=== PATIENT | female | born 1990 | race African-American/Black ===

== ENCOUNTER 2017-07-25 17:34 | Emergency (ER) | payer OTHER ==
[2017-07-25] MEDS ORDERED: Acetaminophen 500 MG TAB ONE (18:22)
[2017-07-25] MEDS ORDERED: Dexamethasone 4 mg/ml Vial ONE (18:50)
[2017-07-25] MEDS ORDERED: Ketorolac Tromethamine 30 MG/ML VIAL ONE (19:03)
== END 2017-07-25 19:30 | disposition home or self-care (01) ==
LOC: ERS 17:34
DX: J02.0 Streptococcal pharyngitis (principal)
CPT/HCPCS: 87430; 96372; J1100; J1885

== ENCOUNTER 2017-11-21 12:46 | Emergency (ER) | payer OTHER | END 2017-11-21 14:09 | disposition home or self-care (01) | LOC: ERS 12:46 | DX: J02.0 Streptococcal pharyngitis (principal); J31.0 Chronic rhinitis | CPT/HCPCS: 87430; 99283 ==

== ENCOUNTER 2018-01-19 16:00 | Emergency (ER) | payer OTHER ==
[~2018-01-19 16:00] MED LIST: ISOVUE-370 76%-LOCM 1 ML ONE
[2018-01-19] MEDS ORDERED: HYDROmorphone 0.5 MG/0.5 ML SYRINGE ONE (16:42)
[2018-01-19] MEDS ORDERED: Ondansetron HCl/PF 4 MG/2 ML Vial ONE (16:42)
[2018-01-19 17:04] LABS: #Basophils 0.1 thou/uL (0.0-0.2); #Eosinphils 0.3 thou/uL (0.0-0.7); #Lymphocytes 1.4 thou/uL (1.20-3.40); #Monocytes 0.6 thou/uL (0.11-0.59); #Neutrophils 7.7 thou/uL (1.40-6.50); %Basophils 0.6 % (0.0-1.0); %Eosinophils 2.9 % (0.0-10.0); %Lymphocytes 13.6 % (21.0-51.0); %Monocytes 5.5 % (0.0-10.0); %Neutrophils 77.5 % (42.0-75.0); Hemoglobin 13.1 g/dL (12.0-16.0); Mean Corpuscular HGB CONC 34.4 g/dL (32.0-36.0); Mean Corpuscular Hemoglobin 30.8 pg (27.0-31.0); Mean Corpuscular Volume 89.7 fL (78.0-98.0); Mean Platelet Volume 6.6 fL (7.4-10.4); Platelet Count 318 thou/uL (130-400); RBC Distribution Width 13.8 % (11.5-14.5); Red Blood Cell (RBC) Count 4.26 mill/uL (4.20-5.40); White Blood Cell (WBC) Count 9.9 thou/uL (4.8-10.8)
[2018-01-19 17:15] LABS: BHCG - Serum Negative (NEGATIVE); Pregs Control Background? CLEAR/WHITE (CLR/WHITE); Pregs Control Bar Appear? YES (CONTROL BAR)
[2018-01-19 17:18] LABS: Bilirubin Negative (Negative); Blood, Urine Large (Negative); Clarity CLOUDY (Clear); Glucose, Urine (Dipstick) Negative (Negative); Leukocyte Moderate (Negative); Nitrite Negative (Negative); Protein, Urine (Dipstick) Trace mg/dL (Neg-Trace); Urobilinogen 0.2 mg/dL (0.2-1.0); pH, Urine 7.5 (5.0-9.0)
[2018-01-19 17:20] LABS: Bacteria/HPF None Seen HPF (None Seen); Hyaline Casts/LPF 0-3 HYALINE CAST LPF (0-3 Hyaline); Pathc Cast-AUWi Flag 0.58 (0-2.49); RBC/HPF GREATER THAN 50-TNTC HPF (0-3); Squamous Epithelial 0-3 HPF (0-3)
[2018-01-19 17:32] LABS: ALT (SGPT) 11 U/L (8-55); AST (SGOT) 16 U/L (5-34); Albumin 3.9 g/dL (3.5-5.0); Alkaline Phosphatase 63 U/L (40-150); Anion Gap 11 mmol/L (10-20); BUN (Urea Nitrogen) 6 mg/dL (7.0-18.7); Bilirubin, Total 0.5 mg/dL (0.2-1.2); Calc. Creatinine Clearance 0 mL/min (70-130); Calcium 9.2 mg/dL (7.8-10.44); Carbon Dioxide 21 mmol/L (22-29); Chloride 110 mmol/L (98-107); Estimated GFR-MDRD Greater than 90; Globulin 3.6 g/dL (2.4-3.5); Glucose 92 mg/dL (70-105); Potassium 3.3 mmol/L (3.5-5.1); Protein, Total 7.5 g/dL (6.0-8.3); Sodium 139 mmol/L (136-145)
--- NOTE | 2018-01-19 19:15 | CT ---
CT ABDOMEN AND PELVIS WITH IV CONTRAST: 01/19/18 HISTORY: Right lower quadrant abdominal pain. COMPARISON: None available. FINDINGS: There is mild bibasilar atelectasis. Post cholecystectomy changes are noted. The liver, spleen, pancreas, bilateral adrenal glands, kidneys, abdominal aorta, urinary bladder, and uterus as well as left adrenal structures demonstrate a normal CT appearance. The right adnexal stru ctures are prominent in size without a discrete lesion identified. Findings could be related to cyst or possibly hemorrhagic cyst associated with the right ovary. While the appendix is not definitively visualized, there are no secondary signs to suggest appendicitis. Tubular structure within the pelvis which appears blind ended and is thought to represent the appendix is normal in caliber where visual ized. No free fluid, fluid collection, or lymphadenopathy is seen in the abdomen or pelvis. Osseous structures are intact. IMPRESSION: 1. Prominence of right adnexal structures; this cannot be adequately evaluated on CT evaluation. Pelvic ultrasound may be helpful for further evaluation. 2. The appendix is not definitely visualized, but there is suggestion of a small blind ending tu bular structure in the pelvis incompletely imaged but probably represents the appendix and is normal in caliber. There are no secondary signs to suggest appendicitis. 3. Post cholecystectomy changes. There is dilatation of the common duct and minimal intrahepatic biliary ductal dilatation, but this is likely related to reservoir effect from cholecystectomy filippo green. POS: GALDINO
--- NOTE | 2018-01-19 21:51 | ULT ---
PELVIC ULTRASOUND 01/19/18 HISTORY: Abnormal CT examination demonstrating prominence of the right adnexal structures. FINDINGS: Multiple transabdominal images are obtained. The uterus measures 12.1 cm x 4.7 cm x 4.2 cm. There is a 3.7 cm heterogeneous mass seen within the r egion of the left aspect uterine fundus likely related to a uterine fibroid. The endometrial stripe i s normal in appearance measuring 0.3 cm in thickness. Each of the ovaries are visualized on transabdominal imaging and based on transabdominal imaging due demonstrate a normal sonographic appearance. The right ovary measures 3.7 cm x 1.7 cm x 2.4 cm with t he left ovary measuring 3.6 cm x 3 cm x 1.9 cm. No adnexal mass or ovarian mass or ovarian cystic or solid mass is appreciated on transabdominal images. Doppler evaluation of each ovary with spectral analysis and color flow evaluation demonstrates arteri al and venous flow in each ovary. No free fluid is seen in the cul-de-sac. IMPRESSION: 1. Small uterine fibroid. 2. Normal appearance of bilateral ovaries on transabdominal imaging. No right adnexal masses or cystic lesion is seen. 3. Arterial flow is documented in each ovary. 4. No free fluid is seen in the cul-de-sac. POS: MIGUEL
== END 2018-01-19 20:51 | disposition home or self-care (01) ==
LOC: ERS 16:00
DX: N39.0 Urinary tract infection, site not specified (principal); R10.31 Right lower quadrant pain
CPT/HCPCS: 36415; 74177; 76856; 80053; 81003; 81015; 84703; 85025; 87480; 87491; 87510; 87591; 87660; 96374; 96375; J1170; J2405

== ENCOUNTER 2018-01-27 17:00 | Emergency (ER) | payer OTHER ==
[2018-01-27] MEDS ORDERED: Dicyclomine 20 MG TAB ONE (18:18)
[2018-01-27] MEDS ORDERED: Metoclopramide HCl 10 MG/2 ML VIAL ONE (18:18)
[2018-01-27] MEDS ORDERED: Ketorolac Tromethamine 30 MG/ML VIAL ONE (18:18)
[2018-01-27 18:44] LABS: #Basophils 0.1 thou/uL (0.0-0.2); #Eosinphils 0.6 thou/uL (0.0-0.7); #Lymphocytes 1.9 thou/uL (1.20-3.40); #Monocytes 0.5 thou/uL (0.11-0.59); #Neutrophils 7.2 thou/uL (1.40-6.50); %Basophils 1.1 % (0.0-1.0); %Eosinophils 5.8 % (0.0-10.0); %Lymphocytes 18.2 % (21.0-51.0); %Monocytes 4.8 % (0.0-10.0); %Neutrophils 70.1 % (42.0-75.0); Hemoglobin 13.1 g/dL (12.0-16.0); Mean Corpuscular HGB CONC 33.9 g/dL (32.0-36.0); Mean Corpuscular Hemoglobin 30.6 pg (27.0-31.0); Mean Corpuscular Volume 90.1 fL (78.0-98.0); Mean Platelet Volume 6.6 fL (7.4-10.4); Platelet Count 398 thou/uL (130-400); RBC Distribution Width 13.4 % (11.5-14.5); Red Blood Cell (RBC) Count 4.29 mill/uL (4.20-5.40); White Blood Cell (WBC) Count 10.3 thou/uL (4.8-10.8)
[2018-01-27 19:07] LABS: ALT (SGPT) 12 U/L (8-55); AST (SGOT) 18 U/L (5-34); Alkaline Phosphatase 61 U/L (40-150); Anion Gap 14 mmol/L (10-20); BUN (Urea Nitrogen) 8 mg/dL (7.0-18.7); Bilirubin, Total 0.4 mg/dL (0.2-1.2); Calc. Creatinine Clearance 0 mL/min (70-130); Calcium 9.5 mg/dL (7.8-10.44); Carbon Dioxide 22 mmol/L (22-29); Chloride 106 mmol/L (98-107); Estimated GFR-MDRD 78; Globulin 3.6 g/dL (2.4-3.5); Glucose 77 mg/dL (70-105); Lipase 112 U/L (8-78); Potassium 3.5 mmol/L (3.5-5.1); Protein, Total 7.6 g/dL (6.0-8.3); Sodium 138 mmol/L (136-145)
== END 2018-01-27 20:33 | disposition home or self-care (01) ==
LOC: ERS 17:00
DX: R11.2 Nausea with vomiting, unspecified (principal)
CPT/HCPCS: 36415; 80053; 83690; 85025; 96361; 96374; 96375; J1885; J2765

== ENCOUNTER 2019-02-25 12:51 | Emergency (ER) | payer MEDICARE, MEDICAID ==
[2019-02-25] MEDS ORDERED: Ketorolac Tromethamine 30 MG/ML VIAL ONE (13:50)
== END 2019-02-25 14:18 | disposition home or self-care (01) ==
LOC: ERS 12:51
DX: K04.7 Periapical abscess without sinus (principal); E03.9 Hypothyroidism, unspecified; Z79.84 Long term (current) use of oral hypoglycemic drugs
CPT/HCPCS: 96372; 99283; J1885

== ENCOUNTER 2019-03-02 02:10 | Emergency (ER) | payer MEDICARE, OTHER ==
[2019-03-02] MEDS ORDERED: diphenhydrAMINE 50 MG/ML VIAL ONE (02:25)
[2019-03-02] MEDS ORDERED: Ketorolac Tromethamine 30 MG/ML VIAL ONE (02:25)
[2019-03-02] MEDS ORDERED: Metoclopramide HCl 10 MG/2 ML VIAL ONE (02:25)
== END 2019-03-02 03:25 | disposition home or self-care (01) ==
LOC: ERS 02:10
DX: R51 Headache (principal); E03.9 Hypothyroidism, unspecified; Z79.84 Long term (current) use of oral hypoglycemic drugs; Z79.891 Long term (current) use of opiate analgesic
CPT/HCPCS: 96374; 96375; J1200; J1885; J2765

== ENCOUNTER 2019-07-23 17:04 | Emergency (ER) | payer MEDICARE ==
--- NOTE | 2019-07-23 18:03 | RAD ---
EXAM: CHEST TWO VIEWS 07/23/2019 5:59 PM HISTORY: Cough congestion and head pain COMPARISON: Prior exam dated November 08, 2012 FINDINGS: Lungs: There is patchy airspace opacity within the right lower lobe suspicious for developing pneumo hermila. Left lung is clear. Heart: Normal in size and contour. Pulmonary Vessels: Normal. Costophrenic Angles: Clear. Pneumothorax: None. Osseous Structures: Intact. Additional Findings: Cholecystectomy IMPRESSION: Patchy airspace opacity in the right lower lobe suspicious for developing right lower lobe pneumonia. Recommend radiographic follow-up to resolution.
== END 2019-07-23 19:00 | disposition home or self-care (01) ==
LOC: ERS 17:04
DX: J18.9 Pneumonia, unspecified organism (principal); E03.9 Hypothyroidism, unspecified
CPT/HCPCS: 71046

== ENCOUNTER 2021-02-16 19:58 | Emergency (ER) | payer MEDICARE ==
[2021-02-16] MEDS ORDERED: Ondansetron PF 4 MG/2 ML Vial ONE (20:30)
[2021-02-16 21:32] LABS: SARS-CoV-2 NAA Rapid Test Not Detected (NotDetected)
== END 2021-02-16 22:01 | disposition home or self-care (01) ==
LOC: ERS 19:58
DX: R05.9 Cough, unspecified (principal); E03.9 Hypothyroidism, unspecified; Z20.822 Contact with and (suspected) exposure to COVID-19
CPT/HCPCS: 0240U; 71046; 96374; J2405

== ENCOUNTER 2021-12-04 15:55 | Emergency (ER) | payer MEDICARE ==
[2021-12-04] MEDS ORDERED: Lidocaine 1% PF 5 ML VIAL ONE (19:32)
[2021-12-04] MEDS ORDERED: HYDROcodone/Acetaminophen 10/325 mg Tablet ONE (19:55)
== END 2021-12-04 21:11 | disposition home or self-care (01) ==
LOC: ERS 15:55
DX: K61.1 Rectal abscess (principal); E03.9 Hypothyroidism, unspecified
CPT/HCPCS: 46040

== ENCOUNTER 2022-02-01 16:55 | Emergency (ER) | payer MEDICARE ==
[~2022-02-01 16:55] MED LIST changes: -ISOVUE-370 76%-LOCM 1 ML ONE; +Iopamidol-370 76% 500 ML 1 ML ONE
[2022-02-01 17:26] LABS: #Basophils 0.1 thou/uL (0.0-0.2); #Eosinphils 0.1 thou/uL (0.0-0.7); #Lymphocytes 3.2 thou/uL (1.20-3.40); #Monocytes 0.5 thou/uL (0.11-0.59); #Neutrophils 3.8 thou/uL (1.40-6.50); %Basophils 0.9 % (0.0-1.0); %Eosinophils 1.9 % (0.0-10.0); %Lymphocytes 41.4 % (21.0-51.0); %Neutrophils 48.8 % (42.0-75.0); Hemoglobin 12.8 g/dL (12.0-16.0); Mean Corpuscular HGB CONC 34.3 g/dL (32.0-36.0); Mean Corpuscular Volume 93.3 fL (78.0-98.0); Mean Platelet Volume 6.5 fL (7.4-10.4); Platelet Count 297 thou/uL (130-400); RBC Distribution Width 13.9 % (11.5-14.5); White Blood Cell (WBC) Count 7.7 thou/uL (4.8-10.8)
[2022-02-01 17:37] LABS: BHCG - Serum Negative (NEGATIVE); Pregs Control Background? CLEAR/WHITE (CLR/WHITE); Pregs Control Bar Appear? YES (CONTROL BAR)
[2022-02-01 17:38] LABS: Bilirubin Negative (Negative); Blood, Urine Negative (Negative); Clarity Clear (Clear); Glucose, Urine (Dipstick) Normal (Negative); Ketone, Urine Negative (Negative); Leukocyte Negative Leu/uL (Negative); Nitrite Negative (Negative); Protein, Urine (Dipstick) 10 mg/dL (Neg-Trace); Specific Gravity, Urine 1.019 (1.002-1.036); pH, Urine 6.5 (5.0-9.0)
[2022-02-01 17:42] LABS: ALT (SGPT) 8 U/L (8-55); AST (SGOT) 13 U/L (5-34); Albumin 4.1 g/dL (3.5-5.0); Alkaline Phosphatase 59 U/L (40-110); Anion Gap 14 mmol/L (10-20); BUN (Urea Nitrogen) 8 mg/dL (7.0-18.7); Bilirubin, Total 0.7 mg/dL (0.2-1.2); Calc. Creatinine Clearance 0 mL/min (70-130); Calcium 9.4 mg/dL (7.8-10.44); Carbon Dioxide 19 mmol/L (22-29); Chloride 108 mmol/L (98-107); Estimated GFR 106; Globulin 3.2 g/dL (2.4-3.5); Glucose 100 mg/dL (70-105); Lipase 78 U/L (8-78); Potassium 3.5 mmol/L (3.5-5.1); Protein, Total 7.3 g/dL (6.0-8.3); Sodium 137 mmol/L (136-145)
[2022-02-01] MEDS ORDERED: Acetaminophen 325 MG TAB ONE ×2 (19:04)
[2022-02-01] MEDS ORDERED: Phenazopyridine HCl 100 MG TAB PO SCH (19:15)
== END 2022-02-01 20:26 | disposition home or self-care (01) ==
LOC: ERS 16:55
DX: R10.30 Lower abdominal pain, unspecified (principal); N83.201 Unspecified ovarian cyst, right side; E03.9 Hypothyroidism, unspecified; D25.9 Leiomyoma of uterus, unspecified
CPT/HCPCS: 36415; 74177; 80053; 81003; 83690; 84703; 85025; Q9967

== ENCOUNTER 2022-09-04 10:38 | Emergency (ER) | payer MEDICARE ==
[2022-09-04 11:14] LABS: #Eosinphils 0.1 thou/uL (0.0-0.7); #Lymphocytes 1.8 thou/uL (1.20-3.40); #Monocytes 0.4 thou/uL (0.11-0.59); %Basophils 0.2 % (0.0-1.0); %Eosinophils 0.9 % (0.0-10.0); %Lymphocytes 24.6 % (21.0-51.0); %Monocytes 5.5 % (0.0-10.0); %Neutrophils 68.8 % (42.0-75.0); Hemoglobin 12.4 g/dL (12.0-16.0); Mean Corpuscular HGB CONC 35.9 g/dL (32.0-36.0); Mean Corpuscular Hemoglobin 33.5 pg (27.0-31.0); Mean Corpuscular Volume 93.3 fl (78.0-98.0); Mean Platelet Volume 6.1 fL (7.4-10.4); Platelet Count 260 10x3/uL (130-400); RBC Distribution Width 13.7 % (11.5-14.5); Red Blood Cell (RBC) Count 3.69 mill/uL (4.20-5.40); White Blood Cell (WBC) Count 7.3 10x3/uL (4.8-10.8)
[2022-09-04 11:45] LABS: ALT (SGPT) Less than 7 U/L (8-55); AST (SGOT) 13 U/L (5-34); Albumin 3.9 g/dL (3.5-5.0); Alkaline Phosphatase 41 U/L (40-110); Anion Gap 12 mmol/L (10-20); BUN (Urea Nitrogen) 5 mg/dL (7.0-18.7); Bilirubin, Total 0.6 mg/dL (0.2-1.2); Calc. Creatinine Clearance 0 mL/min (70-130); Calcium 9.4 mg/dL (7.8-10.44); Carbon Dioxide 24 mmol/L (22-29); Chloride 104 mmol/L (98-107); Estimated GFR 118; Glucose 87 mg/dL (70-105); Lipase 35 U/L (8-78); Potassium 3.6 mmol/L (3.5-5.1); Protein, Total 6.9 g/dL (6.0-8.3); Sodium 136 mmol/L (136-145)
[2022-09-04 11:50] LABS: BHCG - Serum POSITIVE (NEGATIVE); Pregs Control Background? CLEAR/WHITE (CLR/WHITE); Pregs Control Bar Appear? YES (CONTROL BAR)
[2022-09-04] MEDS ORDERED: Ondansetron ODT 4 MG TAB ONE (11:58)
[2022-09-04 12:19] LABS: Bilirubin Negative (Negative); Blood, Urine Negative (Negative); Clarity Clear (Clear); Glucose, Urine (Dipstick) Normal (Negative); Ketone, Urine Negative (Negative); Leukocyte Negative Leu/uL (Negative); Nitrite Negative (Negative); Protein, Urine (Dipstick) Negative (Neg-Trace); Specific Gravity, Urine 1.018 (1.002-1.036); Urobilinogen Normal mg/dL (Less than 2); pH, Urine 6.5 (5.0-9.0)
== END 2022-09-04 13:49 | disposition home or self-care (01) ==
LOC: ERS 10:38
DX: R11.2 Nausea with vomiting, unspecified (principal); E03.9 Hypothyroidism, unspecified
CPT/HCPCS: 36415; 80053; 81003; 83690; 84702; 84703; 85025; 99284; Q0162